=== PATIENT | male | born 1955 | race Caucasian/White ===

== ENCOUNTER 2020-06-06 10:24 | Observation (INO) ==
--- NOTE | 2020-05-02 09:38 | PAT Medication Instructions ---
Medication Instructions Date of Service May 02, 2020 Home Medications citalopram [Celexa] 20 mg PO QAM amlodipine 5 mg PO QPM aspirin [Aspir-81] 81 mg PO QAM furosemide 40 mg PO QAM lisinopril 20 mg PO QAM DO NOT take the morning of surgery furosemide 40 mg PO QAM lisinopril 20 mg PO QAM Take morning of surgery With a small sip of water, OTHERWISE NOTHING TO EAT OR DRINK AFTER MIDNIGHT: citalopram [Celexa] 20 mg PO QAM aspirin [Aspir-81] 81 mg PO QAM Take evening before surgery amlodipine 5 mg PO QPM Other Notes If you have any questions please call us at [phone] or [phone] or [phone] or [phone]
--- NOTE | 2020-05-05 08:20 | Anesthesiology Consultation ---
Date of Service May 05, 2020 Assessment & Plan (1) Encounter for pre-operative examination: Per PAT assessment on 05/05: Travel screen- Lives in [facility]. No known COVID-19 positive contacts. No current COVID-19 related symptoms. Surgeon arranging preop COVID testing (to be done at [facility] per patient). Awaiting results. Chart Review Chart Review: Acceptable Risk for Surgery and Patient seen in Pre Admission Testing History Surgery Operation Date: 06/06/20 12:30 Proposed Procedures p Left Total Knee Arthroplasty - Fernando John MD Height/Weight Height: 5 ft 7 in Weight: 124.7 kg Allergies Allergy/AdvReac Type Severity Reaction Status Date / Time mushroom Allergy Unknown "THROAT Verified 04/28/20 11:43 SHUTS" Medications Home Medications Medication Instructions Recorded Confirmed Last Taken citalopram [Celexa] 20 mg PO QAM 01/06/19 04/28/20 Unknown amlodipine 5 mg PO QPM 04/28/20 04/28/20 Unknown aspirin [Aspir-81] 81 mg PO QAM 04/28/20 04/28/20 Unknown furosemide 40 mg PO QAM 04/28/20 04/28/20 Unknown lisinopril 20 mg PO QAM 04/28/20 04/28/20 Unknown Past Medical History Medical History Anxiety Bilateral primary osteoarthritis of knee Degenerative disc disease GERD (gastroesophageal reflux disease) HX OF Hyperlipidemia HX OF Hypertension Insomnia Legally blind BILAT EYES Osteoarthritis Sleep apnea CPAP Exercise / Class Metabolic Activity III < 4 Walking/Shop/Light housework Past Family History Family History Father Family history of diabetes mellitus Past Surgical History Surgical History History of adenoidectomy History of cardiac cath 10 YEARS AGO (NO STENTS) History of discectomy LUMBAR History of tonsillectomy History of tooth extraction Hx of knee surgery RT KNEE SURGERY (SAW INJURY>CLEANED UP WOUND) Past Anesthesia History No Hx of Anesthesia Complications and No Family Hx of Anesthesia Complications History of PONV No Hx of PONV and No Hx of Motion Sickness Social History Smoking Status: Never smoker tobacco type: smokeless tobacco Smoking cigarettes per day: HX PACK OF CIGARS OVER A LIFETIME Do You Dip or Chew Tobacco: Yes (10 CANS PER 2 WEEKS/ADVISED NPO AM DOS) Hx Alcohol Use: Yes Alcohol type: beer alcohol intake frequency: 3 or more drinks per day Alcohol Intake Frequency Comment: 4-5 BEERS/NIGHT (NO AM ETOH USE) Hx Substance Use: No substance use type: does not use Review of Systems Reflux controlled. Patient denies chest pain, shortness of breath, fever, chills, cough, wheezing, palpitations. Physical Exam Vital Signs VITALS BP 145/95 P 76 TEMP 98.6 SP02 93%RA RESP 18 PHYSICAL Full neck and c-spine range of motion. Full TMJ range of motion. TMD 4 finger breaths Mallampati Score 3 Dentition: poor dentition, several missing/broken teeth Lungs: clear throughout to auscultation Cardiac: regular rate and rhythm, no murmurs noted Spine: normal Carotid arteries: negative bruit Extremities: no edema Very short, thick neck Testing Laboratory Results 05/05/20 08:32 05/05/20 08:32 PT 10.9 Seconds (9.0-12.0) 05/05/20 08:32 INR 1.0 (0.9-1.1) 05/05/20 08:32 APTT 27.2 Seconds (21.0-31.0) 05/05/20 08:32 Blood Type O Positive 05/05/20 08:32 Antibody Screen NEGATIVE 05/05/20 08:32 Electrocardiogram Date: 05/05/20 NSR at 81bpm. Low voltage QRS. iRBBB. Chest X-Ray Date: 05/05/20 FINDINGS: Moderate cardiomegaly. Diaphragms are smooth. Scattered platelike atelectasis. No focal infiltrate. IMPRESSION: Moderate cardiomegaly. Scattered platelike atelectasis. No acute infiltrate.
--- NOTE | 2020-05-05 09:10 | XRay Report ---
XR chest Pre-admission PA/Lat CLINICAL HISTORY: pat preoperative evaluation COMPARISON STUDY: No previous studies for comparison. FINDINGS: Moderate cardiomegaly. Diaphragms are smooth. Scattered platelike atelectasis. No focal inf iltrate. IMPRESSION: Moderate cardiomegaly. Scattered platelike atelectasis. No acute infiltrate. ACT 112: Negative or not required by law. The above report was generated using voice recognition software. It may contain grammatical, syntax or spelling errors. Electronically signed by: Richard Scott M.D. 05/05/2020 9:09 AM
[2020-05-05 09:55] LABS: Basophils # (auto) 0.06 K/uL (0-0.2); Basophils % (auto) 0.6 %; Eosinophils # (auto) 0.33 K/uL (0-0.5); Eosinophils % (auto) 3.2 %; Hematocrit (blood only) 52.6 % (42-52); Hemoglobin 17.4 g/dL (14.0-18.0); Immature Granulocytes # (auto) 0.03 K/uL (0.00-0.02); Immature Granulocytes % (auto) 0.3 %; Lymphocytes # (auto) 1.52 K/uL (1.2-3.4); Lymphocytes % (auto) 14.8 %; Mean Corpuscular Hemoglobin 29.8 pg (25-34); Mean Corpuscular Hgb Conc 33.1 g/dL (32-36); Mean Corpuscular Volume 90.1 fL (80-100); Mean Platelet Volume 10.7 fL (7.4-10.4); Monocytes # (auto) 1.26 K/uL (0.11-0.59); Monocytes % (auto) 12.3 %; Neutrophils # (auto) 7.07 K/uL (1.4-6.5); Neutrophils % (auto) 68.8 %; Platelet Count 309 K/uL (130-400); RDW Coefficient of Variation 14.6 % (11.5-14.5); RDW Standard Deviation 48.2 fL (36.4-46.3); Red Blood Count 5.84 M/uL (4.7-6.1); White Blood Count 10.27 K/uL (4.8-10.8)
[2020-05-05 10:08] LABS: Calcium 9.8 mg/dl (8.5-10.1); Creatinine Clr Calc Pharmacy 95.1 ml/min; Est GFR (African American) 90.9; Est GFR (Non-African American) 78.4; Partial Thromboplastin Time 27.2 Seconds (21.0-31.0); Potassium 4.7 mmol/L (3.5-5.1); Prothrombin Time 10.9 Seconds (9.0-12.0)
--- NOTE | 2020-05-06 07:02 | Electrocardiogram Report ---
Test Reason : Blood Pressure : / mmHG Vent. Rate : 081 BPM Atrial Rate : 081 BPM P-R Int : 162 ms QRS Dur : 100 ms QT Int : 396 ms P-R-T Axes : 019 067 069 degrees QTc Int : 460 ms Normal sinus rhythm Low voltage QRS Incomplete right bundle branch block Borderline ECG No previous ECGs available Confirmed by Celestino John ([id number]) on 05/06/2020 7:02:19 AM Referred By: Fernando John Confirmed By:Celestino John
--- NOTE | 2020-06-03 12:07 | History and Physical Report ---
DATE OF ADMISSION: 06/06/2020 CHIEF COMPLAINT: Bilateral knee pain and discomfort, right side greater than left. HISTORY OF PRESENT ILLNESS: The patient is a 64-year-old gentleman who presents for evaluation and surgical treatment of his knees. He has had a long history of bilateral knee arthritis that has gradually gotten worse over time. He was actually scheduled to have his knee operated on by Dr. Ng several years ago, but got canceled. He then saw me and scheduled surgery again, but then got canceled due to insurance issues. He has continued to be bothered by knee pain and discomfort. The left side is a bit worse than the right. He has failed conservative treatment including injections and medicines. He limps more as the day goes on. He would like to have his left knee replaced. PAST MEDICAL HISTORY: 1. Hypertension. 2. Anxiety. 3. Sciatica/low back pain. 4. Gastroesophageal reflux disease. 5. Sleep apnea with CPAP machine. 6. Obesity with a BMI of 43. PAST SURGICAL HISTORY: Include: 1. Cardiac catheterization 8-9 years ago which is negative. 2. Back surgery in 1999. ALLERGIES: None. CURRENT MEDICINES: 1. Lisinopril once a day. 2. Amlodipine once a day. 3. Citalopram once a day. 4. Furosemide 40 mg a day. SOCIAL HISTORY: Significant for 64-year-old male. He is . He does drink pretty regularly about a case of beer a week. He does chew snuff. FAMILY HISTORY: Significant for heart disease. REVIEW OF SYSTEMS: Significant for obesity. I also has significant alcohol history. No history of DVT or PE. No known bleeding problems. PHYSICAL EXAMINATION GENERAL: Shows a pleasant, middle-aged male, looks to be in reasonable health. HEENT: Benign. NECK: Supple, no lymphadenopathy. LUNGS: Clear to auscultation. HEART: Regular rate and rhythm. ABDOMEN: Soft, nontender, nondistended. EXTREMITIES: Grossly neurovascularly intact except as follows. Examination of the left knee reveals the patient ambulates with a bit of a limp. He has got varus alignment to his knee with a small varus thrust. He has got a moderate sized knee effusion. Range of motion about 10 degrees short of full extension to 120 degrees of flexion. There is no instability. No pain with hip motion. Examination of the right knee reveals varus alignment. Small knee effusion. Range of motion 5-125. No instability. X-RAYS: X-rays of both knees were reviewed. Shows advanced bilateral knee DJD. He has got complete loss of his medial joint space on both sides. The left side is a bit worse than the right. He has got subchondral sclerosis. ASSESSMENT: A 64-year-old male with a history of hypertension, obesity, gastroesophageal reflux disease, alcohol use with advanced bilateral knee pain and degenerative joint disease. He has failed all conservative care. He has been scheduled for surgery in the past but canceled for various reasons. He now would like to proceed with left knee replacement. He was hoping to do both knees at the same time, but I do not think he is a good candidate to do that. PLAN: After further discussion, we are going to proceed with left knee replacement. The risks and benefits of this procedure were explained to the patient including but not limited to DVT, PE, , infection, neurological injury, vascular injury, bleeding problem, pain, limited range of motion, stiffness, failure to relieve symptoms, incomplete relief of symptoms, need for further surgery in future, fracture, leg length inequality, nerve palsy, and need for revision surgery. The patient understands and desires to proceed. Informed consent was obtained. We did talk to him about holding his lisinopril the morning of surgery and bringing his CPAP machine. We will likely do some DT prophylaxis due to his alcohol use and might need a patch due to his smokeless tobacco use. He is hoping to be discharged home using [facility] home health program.
[~2020-06-06 10:24] MED LIST: ACETAMINOPHEN 500 MG TAB PO SCH; BUPIVACAINE 0.5 % 5 MG/1 ML PF 10ML VIAL ONE; BUPIVACAINE LIPOSOME/PF 266 MG, BUPIVACAINE/EPINEPHRINE 50 ML, SODIUM CHLORIDE 0.9% 30 ... INFIL SCH; CEFAZOLIN 3000MG 72.5 ML IV SCH; FAMOTIDINE 20 MG TAB PO SCH; GABAPENTIN 600 MG DOSE PO SCH; LR 500ML BOLUS, THEN 15ML/HR IV SCH; LR 60ML/HR IV SCH; METOCLOPRAMIDE HCL 10 MG TABLET PO SCH; ROPIVACAINE 0.5% 5 MG/ML 30 ML VIAL ONE; TRANEXAMIC ACID 1,000 MG **IV Intra-op IV SCH
--- NOTE | 2020-06-06 11:19 | History & Physical Bridge Note ---
Date of Service June 06, 2020 History & Physical Bridge Note I have examined the patient, reviewed the History & Physical and in the interval since the performance of the History & Physical I have noted the following changes of clinical significance: no changes noted
[2020-06-06] MEDS ORDERED: fentaNYL citrate 100 MCG/2 ML VIAL ONE (12:09)
[2020-06-06] MEDS ORDERED: MIDAZOLAM HCL 1 MG/ML 2ML VIAL ONE (12:09)
[2020-06-06] MEDS ORDERED: fentaNYL citrate 100 MCG/2 ML VIAL IV PRN (12:12)
[2020-06-06] MEDS ORDERED: HYDROmorphone INJ 2 MG/ML SYR/VIAL IV PRN (12:12)
[2020-06-06] MEDS ORDERED: PROMETHAZINE HCL 12.5 MG in SODIUM CHLORIDE 0.9% 50 ML IV PRN (12:12)
[2020-06-06] MEDS ORDERED: METOCLOPRAMIDE HCL INJ 5 MG/ML 2 ML VIAL IV PRN ×2 (12:12→17:19)
[2020-06-06] MEDS ORDERED: ONDANSETRON INJ 2 MG/ML 2 ML VIAL IV PRN ×2 (12:12→17:19)
[2020-06-06] MEDS ORDERED: ePHEDrine sulfate 50 MG/ML AMP IV PRN (12:12)
[2020-06-06] MEDS ORDERED: ATROPINE SULFATE 0.1 MG/ML 10ML SYR IV PRN (12:12)
[2020-06-06] MEDS ORDERED: EPINEPHrine INJ 1 MG/ML AMP ONE (13:27)
[2020-06-06] MEDS ORDERED: BUPIVACAINE 0.25% 30 ML VIAL ONE (13:27)
[2020-06-06] MEDS ORDERED: BACITRACIN INJ 50,000 UNIT VIAL ONE (13:28)
[2020-06-06] MEDS ORDERED: SODIUM CHLORIDE 0.9% PF 50 ML VIAL ONE (13:28)
[2020-06-06] MEDS ORDERED: BUPIVACAINE LIPOSOME 1.3% 266 MG/20 ML VIAL ONE (13:28)
--- NOTE | 2020-06-06 15:35 | Post Operative Brief Note ---
PG Immediate Post Op with CF Date of Surgery June 06, 2020 Pre & Post Diagnosis Operation Date: 06/06/20 12:30 Pre-Op Diagnosis: Left Knee Degenerative Joint Disease; Knee Pain Post-Op Diagnosis: Left Knee Degenerative Joint Disease; Knee Pain I identified the patient and participated in the time-out.: Yes Procedure Operation Date: 06/06/20 12:30 Actual Procedures p Left Total Knee Arthroplasty(Left) - Fernando John MD Surgeon Fernando John MD Ceramic Maker Demonstrator Elena, [facility] Estimated Blood Loss 50 Findings Consistent with Post-Op Diagnosis Fluids 1000 cc Specimens Specimen Description: A: Left knee bone & tissue Drains Cabrera Catheter Anesthesia Type Spinal MAC Complications none Disposition Accompanied Patient To Recovery: No Disposition: Recovery Room
--- NOTE | 2020-06-06 16:05 | XRay Report ---
XR knee LT 1 or 2V routine HISTORY: 64 years-old Male Surgical Post Op [total joint arthroplasty COMPARISON: Knee radiographs 04/13/2020 TECHNIQUE: 2 views of the left knee FINDINGS: Left knee total joint arthroplasty and patella resurfacing. Anterior midline skin sky are noted l olga with expected post surgical soft tissue swelling and deep tissue air with surgical drainage violetta ter. There is satisfactory alignment without acute fracture or retained foreign body. IMPRESSION: Left knee total joint arthroplasty and patella resurfacing with expected postoperative ch anges. ACT 112: Negative or not required by law. The above report was generated using voice recognition software. It may contain grammatical, syntax o r spelling errors. Electronically signed by: Harlan Yanes M.D. 06/06/2020 4:04 PM
--- NOTE | 2020-06-06 16:33 | Anesthesiology Progress Note ---
Date of Service June 06, 2020 Anesthesia Post Procedure Vital Signs Vital Signs: Temp Pulse Pulse Resp BP Pulse Ox 06/06/20 16:20 36.7 C 85 14 112/69 93 06/06/20 16:10 89 14 122/84 94 06/06/20 16:00 80 18 127/72 93 06/06/20 15:50 86 17 129/66 95 06/06/20 15:42 36.8 C 93 H 17 131/67 92 06/06/20 12:00 37.1 C 94 H 20 143/88 H 93 06/06/20 11:12 36.8 C 104 H 20 164/92 H 92 Pain Intensity Right Lower Back: Pain Intensity: 4 Left Leg: Pain Intensity: 0 Transfer of Care Handoff Completed per policy Notes Mental Status: alert / awake / arousable and participated in evaluation Patient Amnestic to Procedure: Yes Nausea / Vomiting: adequately controlled Pain: adequately controlled Airway Patency, RR, SpO2: stable & adequate BP & HR: stable & adequate Hydration State: stable & adequate Neuraxial Anesthesia: was administered and sensory block is resolving Anesthetic Complications: no major complications apparent and Pt Satisfied with anesthetic care
[2020-06-06] MEDS ORDERED: GLUCOSE 40% GEL 15 GM TUBE PO PRN (17:19)
[2020-06-06] MEDS ORDERED: GLUCAGON FOR INJ 1 MG VIAL SQ PRN (17:19)
[2020-06-06] MEDS ORDERED: OXYCODONE HCL IR 5 MG TAB (IMMEDIATE RELEASE) PO PRN (17:19)
[2020-06-06] MEDS ORDERED: CARBOHYDRATES FOR HYPOGLYCEMIA PO PRN (17:19)
[2020-06-06] MEDS ORDERED: GLUCOSE 10 TABS/TUBE PO PRN (17:19)
[2020-06-06] MEDS ORDERED: bisacodyL 10 MG SUPP PR PRN (17:19)
[2020-06-06] MEDS ORDERED: HYDROmorphone INJ 0.5 MG/0.5 ML SYR IV PRN (17:19)
[2020-06-06] MEDS ORDERED: NALOXONE HCL 0.4 MG/1 ML VIAL/CARP IV PRN (17:19)
[2020-06-06] MEDS ORDERED: TAMSULOSIN HCL 0.4 MG CAP PO PRN (17:19)
[2020-06-06] MEDS ORDERED: MAGNESIUM HYDROXIDE SUSP 30 ML UDC PO PRN (17:19)
[2020-06-06] MEDS ORDERED: DEXTROSE 50% 50 ML SYRINGE IV PRN (17:19)
[2020-06-06] MEDS ORDERED: ALUMINUM/MAGNESIUM SUSP 30 ML UDC PO PRN (17:19)
--- NOTE | 2020-06-06 17:36 | Operative Report ---
Post Operative Report Pre & Post Diagnosis Operation Date: 06/06/20 12:30 Pre-Op Diagnosis: Left Knee Degenerative Joint Disease; Knee Pain Post-Op Diagnosis: Left Knee Degenerative Joint Disease; Knee Pain I identified the patient and participated in the time-out.: Yes Procedure Operation Date: 06/06/20 12:30 Actual Procedures p Left Total Knee Arthroplasty(Left) - Fernando John MD Surgeon Fernando John MD Custom Home Installer Elena, PAC Estimated Blood Loss 50 Findings Consistent with Post-Op Diagnosis Operative findings revealed advanced left knee DJD with extensive grade 4 [id number] disease of the entire medial compartment with eburnation of the medial femoral condyle medial tibial plateau. Large osteophytes medially. Large knee joint effusion. Large soft tissue envelope. Fluids 1000 cc. Specimens Left knee sent for pathology. Drains None. Anesthesia Type Spinal MAC Complications none Disposition Accompanied Patient To Recovery: No Disposition: Recovery Room Indications Patient is a 64-year-old gentleman is had a long history of bilateral knee pain discomfort. He is failed all conservative care. He was actually scheduled to have his knee replaced by Dr. Ng several years ago but this got canceled. We scheduled for knee replacement by year ago but his insurance did not come through and he decided not to have it done. He continues to be limited by knee pain discomfort in both knees. The left side is worse than the right. He now elected proceed with total knee arthroplasty. Description of Procedure Operative implants consist of: 1 Biomet Vanguard size 65 left posterior by femoral component. 2. Biomet size 75 tibial tray. 3. 12 mm posterior box polyethylene insert. 4. 31 x 8 all poly-patella. The patient was taken to the operating room identified and placed on the operating table supine position protectors were properly padded. IV antibiotics arrived by anesthesia team. A spinal anesthetic and abductor canal block had been provided in the holding area. Cabrera catheter was placed in sterile fashion. Left thigh tract was then placed in the left lower extremities and prepped and draped in usual sterile fashion. The left leg was elevated exsanguinated with use of an Esmarch interspace at 3 mmHg. An anterior approach left knee was then performed through a longitudinal incision centered over the patella. Sharp dissection was got through subcutaneous tissue down to level the extensor mechanism. A medial parapatellar arthrotomy incision was made. Some subperiosteal dissection was carried out medially. The fat pad was dissected from each patella tendon. The lateral patellofemoral ligament was released. Patella was subluxated laterally and the knee was flexed. The osteophytes were taken off the distal femur. The ACL and PCL were then released from distal femur and the tibia subluxated anteriorly. The external tibial alignment jig was then placed in the interface the tibia and adjusted 16 mm medially. Proximal tibial cut was made to move out a millimeter bone from most efficient aspect medial tibial plateau. Some osteophytes were taken off medial and posterior medially. The tibia sized to a size 75. Attention drawn the femur. The distal femur then with a sharp drop with intramedullary canal was suction. A left 6 degree valgus cutting guide was placed. Distal femoral cutting block was pinned in place. Distal femoral cut was made to take an additional 3 mm of bone off distal femur. The femur was then sized to a size 65. Sized exactly to a 65. The AP cutting block was pinned parallel to the epicondylar axis which was 4 degrees of external rotation. The anterior cut, anterior chamfer, posterior cut, posterior chamfer cuts were made. Box cutting guide was placed in just slight lateral box cut was made. The knee was flexed. The remnants of the medial lateral menisci were excised. The osteophytes were taken off the posterior aspect of the femur. A trial femoral component was placed. The tibial tray was pinned in maximum external rotation and the drill and stem punch were used to create defect in proximal tibia for the tibial tray. Knee was then trialed and the 12 mm insert fit most appropriate. Still a bit of lateral laxity but medial side was appropriate tight and I felt this was optimal considering his knee. Attention drawn the patella. The patella was cleaned of all soft tissues. Patella thickness measured 23 mm in thickness was cut down to 14. Was sized to a size 31 patella. Locals were drilled for 31 patella. Lateral osteophyte is moved. Patella button was placed. Knee was taken through range of motion patella tracked nicely with no thumbs test. Attention turned to placing the permanent components. All trial components removed. Bone plug was placed in the distal femur limit blood loss. A double batch Palacos G cement was mixed. A Biomet Vanguard size 65 left posterior by femoral component, size 75 tibial tray, a 12 mm posterior stabilized polyethylene insert, and a 31 x 8 all poly-patella were then cemented in place. Knee was brought out a full extension until cement hardened. Final cement check was then performed. The pericapsular tissues were injected with a total of 100 cc of combination of 20 cc of Exparel, 30 cc of normal saline, 50 cc of quarter percent Marcaine with epinephrine. Patient did receive 1 g tranexamic acid. The tourniquet was then let down for final tourniquet time 61 minutes but hemostasis assured with electrocautery. Extensor mechanism closed with combination 1 PDS suture #1 Vicryl suture in [id number] fashion. Extensor mechanism was checked and f ound to be intact the subcutaneous tissue then closed with 2 Dexon suture in a buried interrupted fashion skin was closed skin sky. Leg was then cleaned dried a sterile dressing composed Xeroform, 4 x 4's, sterile cast padding, Rodrigo bandage were applied. Patient then transferred to the recovery room in stable condition. Patient tolerated the procedure well and there were no complications. Miller Parker, my physician trade sales assistant, was present for the entire procedure. His assistance and presence were essential to appropriate patient positioning, prepping and draping, surgical exposure, performing the technical aspects of the operation, placing the implants, closure of the wound, and placement of the sterile bandage. I attest to the content of the Intraoperative Record and any orders documented therein. Any exceptions are noted below.
[2020-06-06] MEDS ORDERED: PHARMACY GLYCEMIC MGMT CONSULT PRN (17:44)
[2020-06-06] MEDS ORDERED: chlordiazePOXIDE HCl 25 MG CAP PO PRN (17:51)
[2020-06-06] MEDS: ASCORBIC ACID 500 MG TAB PO SCH (18:20)
[2020-06-06] MEDS: SODIUM CHLORIDE 0.9% 1000ML 1,000 ML IV SCH (18:20)
[2020-06-06] MEDS: KETOROLAC 30 MG/ML VIAL IV SCH ×2 (18:20→23:30)
[2020-06-06] MEDS: Scopolamine CHECK PATCH PLACEMENT SCH ×2 (18:20→23:31)
[2020-06-06] MEDS: INSULIN ASPART 100 UNITS/ML 3 ML PEN SC SCH ×2 (18:26→22:26)
--- NOTE | 2020-06-06 19:21 | Pharmacy Report ---
Pharmacy Glycemic Short Note 2 - Date of Service June 06, 2020 - Glycemic Short BSG Results (Last 24 hours): 06/06/20 17:20 POC Glucose 108 H OUTPATIENT ANTIDIABETIC REGIMEN: * n/a ASSESSMENT: * Beny is a 64 yo male s/p L TKA * No history of diabetes documented. Patient is not on any anti-diabetic agents as an outpatient. No A1c available. * Patient did not receive steroids in the OR. BSG upon arrival to the floor was 108 mg/dL. * I have ordered Novolog ACHS for correctional insulin only - no carb coverage required at this time PLAN FOR INPATIENT GLYCEMIC CONTROL: * Basal insulin * none * Bolus insulin * NovoLog per scale ACHS or Q6hrs while NPO * Goal Range: Low 110 mg/dL - High 140 mg/dL * Correction Factor: 25 mg/dL/unit * Nutritional / Prandial insulin: none thank you
[2020-06-06] MEDS: CEFAZOLIN 2000MG 2,000 MG/15 ML SYR IV SCH (21:19)
[2020-06-06] MEDS: DOCUSATE SODIUM 100 MG CAP PO SCH (21:20)
[2020-06-06] MEDS: SENNA 8.6 MG TAB PO SCH (21:20)
[2020-06-06] MEDS: AMLODIPINE BESYLATE 5 MG TAB PO SCH (21:20)
[2020-06-06] MEDS: ASPIRIN 81 MG ECTAB PO SCH (21:20)
[2020-06-06] MEDS: ACETAMINOPHEN 500 MG TAB PO SCH (21:21)
[2020-06-06] MEDS: TAPENTADOL HCL ER 50 MG TABCR PO SCH (21:21)
[2020-06-06] MEDS ORDERED: TRANEXAMIC ACID / 0.7% NACL 1,000 MG/100 ML BAG IV SCH (21:30)
[2020-06-07] MEDS: SODIUM CHLORIDE 0.9% 1000ML 1,000 ML IV SCH (00:02)
[2020-06-07] MEDS: KETOROLAC 30 MG/ML VIAL IV SCH ×4 (05:22→23:39)
[2020-06-07] MEDS: ACETAMINOPHEN 500 MG TAB PO SCH ×3 (05:23→21:45)
[2020-06-07] MEDS: CEFAZOLIN 2000MG 2,000 MG/15 ML SYR IV SCH (05:26)
[2020-06-07 06:10] LABS: Hematocrit (blood only) 45.3 % (42-52); Hemoglobin 14.1 g/dL (14.0-18.0); Mean Corpuscular Hemoglobin 28.8 pg (25-34); Mean Corpuscular Hgb Conc 31.1 g/dL (32-36); Mean Corpuscular Volume 92.6 fL (80-100); Mean Platelet Volume 10.5 fL (7.4-10.4); Platelet Count 353 K/uL (130-400); RDW Coefficient of Variation 15.5 % (11.5-14.5); RDW Standard Deviation 52.5 fL (36.4-46.3); Red Blood Count 4.89 M/uL (4.7-6.1); White Blood Count 14.08 K/uL (4.8-10.8)
[2020-06-07 06:39] LABS: BUN Creatinine Ratio 12.6 (10-20); Calcium 9.3 mg/dl (8.5-10.1); Creatinine Clr Calc Pharmacy 92.4 ml/min; Est GFR (African American) 88.8; Est GFR (Non-African American) 76.6; Potassium 4.3 mmol/L (3.5-5.1)
[2020-06-07] MEDS: Scopolamine CHECK PATCH PLACEMENT SCH ×2 (07:47→15:06)
[2020-06-07] MEDS: FOLIC ACID 1 MG TAB PO SCH (08:01)
[2020-06-07] MEDS: DOCUSATE SODIUM 100 MG CAP PO SCH ×2 (08:01→21:44)
[2020-06-07] MEDS: THIAMINE HCL 100 MG TAB PO SCH (08:01)
[2020-06-07] MEDS: ASPIRIN 81 MG ECTAB PO SCH ×2 (08:01→21:44)
[2020-06-07] MEDS: TAPENTADOL HCL ER 50 MG TABCR PO SCH ×2 (08:01→21:49)
[2020-06-07] MEDS: FUROSEMIDE 40 MG TAB PO SCH (08:02)
[2020-06-07] MEDS: MULTIVITAMIN TAB PO SCH (08:02)
[2020-06-07] MEDS: lisinopriL 20 MG TAB PO SCH (08:02)
[2020-06-07] MEDS: CITALOPRAM 20 MG TAB PO SCH (08:02)
[2020-06-07] MEDS: ASCORBIC ACID 500 MG TAB PO SCH ×2 (08:02→17:49)
[2020-06-07] MEDS: INSULIN ASPART 100 UNITS/ML 3 ML PEN SC SCH ×4 (09:06→21:52)
--- NOTE | 2020-06-07 14:34 | Progress Notes ---
DATE: 06/07/2020 SUBJECTIVE: A 64-year-old gentleman postop day 1 from left knee replacement. He is doing pretty well. Painful after therapy but not much pain while resting. No chest pain or shortness of breath. Not feeling dizzy or lightheaded. OBJECTIVE: VITAL SIGNS: Temperature 36.6. Vital signs stable. GENERAL: Shows a pleasant, middle-aged male. He is lying in bed, looks pretty comfortable. EXTREMITIES: Examination of the left leg reveals the dressing to be clean, dry, and intact. He can dorsiflex and plantarflex his foot appropriately. He is neurologically intact. LABORATORY DATA: Hemoglobin is 14.1. Hematocrit 45.3. White cell count 14.08. Electrolytes are stable. ASSESSMENT: A 64-year-old diabetic patient, postoperative day 1 from left knee replacement, doing reasonably well. Pain is controlled. He is neurologically intact. PLAN: 1. DVT prophylaxis including thigh-high TEDs, SCDs, and aspirin twice a day. 2. PT/OT. Weight bear as tolerated. Left total knee protocol. 3. Pain control, doing okay with current pain regimen. 4. Disposition: He is planning to be discharged to home with some home health once adequately recovered and medically stable.
[2020-06-07] MEDS: AMLODIPINE BESYLATE 5 MG TAB PO SCH (21:44)
[2020-06-07] MEDS: SENNA 8.6 MG TAB PO SCH (21:44)
[2020-06-08] MEDS: ACETAMINOPHEN 500 MG TAB PO SCH (05:32)
[2020-06-08] MEDS: KETOROLAC 30 MG/ML VIAL IV SCH ×2 (05:33→12:41)
[2020-06-08] MEDS: CITALOPRAM 20 MG TAB PO SCH (07:43)
[2020-06-08] MEDS: ASPIRIN 81 MG ECTAB PO SCH (07:43)
[2020-06-08] MEDS: ASCORBIC ACID 500 MG TAB PO SCH (07:43)
[2020-06-08] MEDS: MULTIVITAMIN TAB PO SCH (07:44)
[2020-06-08] MEDS: lisinopriL 20 MG TAB PO SCH (07:44)
[2020-06-08] MEDS: THIAMINE HCL 100 MG TAB PO SCH (07:44)
[2020-06-08] MEDS: FOLIC ACID 1 MG TAB PO SCH (07:45)
[2020-06-08] MEDS: DOCUSATE SODIUM 100 MG CAP PO SCH (07:45)
--- NOTE | 2020-06-08 07:50 | Progress Notes ---
DATE: 06/08/2020 SUBJECTIVE: A 64-year-old gentleman postop day 2 from left knee replacement. He is doing pretty well. Pain has been reasonably well controlled. No chest pain or shortness of breath. Looking forward to going home. OBJECTIVE: VITAL SIGNS: Temperature 37.3. Vital signs stable. GENERAL: Shows a pleasant, middle-aged male. He is sitting up in his bedside. Looks pretty comfortable this morning. EXTREMITIES: Examination of the left leg reveals the dressing to be clean, dry and intact. Leg is well aligned. He can dorsiflex and plantarflex his foot appropriately. He is neurologically intact. ASSESSMENT: A 64-year-old gentleman postop day 2 from left knee replacement, doing pretty well. His pain is controlled. PLAN: 1. DVT prophylaxis including thigh-high TEDs, SCDs, and aspirin twice a day. 2. PT/OT. Weightbear as tolerated. Left total knee protocol. 3. Pain control, doing well with current pain regimen. 4. Disposition: Plan to discharge to home likely with some home health later today.
[2020-06-08] MEDS: TAPENTADOL HCL ER 50 MG TABCR PO SCH (07:51)
[2020-06-08] MEDS: INSULIN ASPART 100 UNITS/ML 3 ML PEN SC SCH (08:39)
--- NOTE | 2020-06-08 09:16 | Pharmacy Report ---
Pharmacy Glycemic Sign Off Nt - Date of Service June 08, 2020 - Assessment & Plan ASSESSMENT: * Pharmacy was consulted by Dr John on 06/06 for glycemic control and to write orders per [facility] inpatient glycemic control protocol. * No changes made to insulin regimen * Patient received 0 units of insulin w/in last 48 hrs * Do not anticipate further changes in patient status that would quickly deteriorate glycemic control (i.e. patient to be NPO for upcoming procedure, steroids tapering, starting tube feedings, etc). * Please see recommendations for outpatient antidiabetic regimen below. PLAN FOR INPATIENT GLYCEMIC CONTROL: No changes needed to current regimen. * Would recommend discontinuation of novolog as no insulin needed yet on admission and BSGs stable * Pharmacy is signing off of glycemic consult and will no longer be making adjustments to inpatient regimen. Please feel free to re-consult if needed. Thank you.
[2020-06-08] MEDS: FUROSEMIDE 40 MG TAB PO SCH (09:27)
--- NOTE | 2020-06-11 07:24 | Discharge Summary ---
Date of Service June 11, 2020 Admission HPI Per Admitting Provider Documented in the H & P Admission Exam (Per Admitting) Constitutional Documented in the H & P Discharge Data Consultations 06/06/20 17:19 Consult Case Management - Discharge Planning Routine Procedures Performed Operation Date: 06/06/20 12:30 Actual Procedures p Left Total Knee Arthroplasty(Left) - Fernando John MD Hospital Course (1) Status post total left knee replacement: This patient is a 64 year old male admitted on 06/06/20 and underwent total knee replacement. He tolerated the procedure well and there were no complications. Transferred to the PACU post op and later to the orthopedic floor for further care. He was given ancef for antibiotic prophylaxis. He was also gi paulette NORA stockings, SCDs, and aspirin for DVT prophylaxis. Hemoglobin, hematocrit, and vital signs were monitored during his hospital stay and remained stable. Did not require any blood transfusions. There were no complications during his hospital stay. By post op day #2 the patient was tolerating a diabetic diet, pain was reasonably controlled with oral pain medicine, and he was participating in physical therapy. On post op day #2 the patient was discharged home and set up with home health care. He was given printed discharge instructions including prescriptions for extra strength tylenol, aspirin, and oxycodone. Continue physical therapy, weight bearing as tolerated. Continue NORA stockings. Follow up approximately 2 weeks post op or sooner if there are problems or concerns. Coding Level of Care Code None Diagnoses Status post total left knee replacement Z96.652
== END 2020-06-08 13:18 | disposition home health service (06) ==
LOC: 3E 10:24 → ASU 10:24